=== PATIENT | female | born 1985 | race Caucasian/White ===

== ENCOUNTER 2022-06-18 08:51 | Outpatient (CLI) | payer OTHER, SELFPAY ==
[2022-06-18 09:24] LABS: Basophils Percent Auto 0.3 % (0.2-1.2); Eosinophils Absolute Auto 0.2 K/mm3 (0-0.3); Eosinophils Percent Auto 1.5 % (0-4.4); Hematocrit 42.2 % (37.0-47.0); Hemoglobin 13.5 g/dL (12.0-15.0); Immature Granulocyte Absolute 0.03 K/mm3 (0.00-0.031); Immature Granulocyte Percent A 0.3 % (0-0.5); Lymphocytes Absolute Auto 2.51 K/mm3 (0.9-3.2); Lymphocytes Percent Auto 22.9 % (18.3-44.2); Mean Corpuscular Hemoglobin 28.1 pg (26-34); Mean Corpuscular Volume 87.9 fl (80-100); Mean Platelet Volume 10.3 fl (7.4-10.4); Monocytes Absolute Auto 0.9 K/mm3 (0.1-0.6); Neutrophils Absolute Auto 7.3 K/mm3 (1.3-6.7); Platelet Count Result 300 k/mm3 (150-375); Red Cell Distribution Width 12.8 % (11.5-14.5)
[2022-06-18 09:29] LABS: Appearance Urine Cloudy (Clear); Bilirubin Urine Negative (Negative); Blood Urine Negative (Negative); Color Urine Yellow (Yellow); Glucose Urine UA Negative (Negative); Ketones Urine Negative (Negative); Leukocyte Esterase Ur Negative LEU/UL (Negative); Nitrate Urine Negative (Negative); Protein Urine Negative (Negative); Specific Grav Ur 1.015 (1.001-1.035); pH Urine 7.5 (5.0-9.0)
--- NOTE | 2022-06-18 09:31 | ECG_ITS ---
Measurements Intervals [place] Rate: 69 P: 53 HI: 152 QRS: 4 QRSD: 98 T: 32 QT: 377 QTc: 405 Interpretive Statements SINUS RHYTHM POSSIBLE RIGHT VENTRICULAR CONDUCTION DELAY BORDERLINE ECG NO PREVIOUS ECG AVAILABLE FOR COMPARISON Electronically Signed On 06-18-2022 14:07:39 DISPENSING OPERATOR by Martín Vu M.D.
[2022-06-18 09:33] LABS: Anion Gap 6 mmol/L (8-16); Blood Urea Nitrogen 13 mg/dL (7-17); Carbon Dioxide 31 mmol/L (22-30); Chloride 100 mmol/L (98-107); Estimated Glomerular Filt Rate > 60; Glucose 109 mg/dL (65-110); Potassium 3.9 mmol/L (3.4-5.0); Sodium 137 mmol/L (137-145)
[2022-06-18 09:49] LABS: Amorphous Sediment Urine Few; RBC Urine 0-2 /hpf (0-2); Squamous Epithelial Cell Urine Moderate /hpf (Few)
[2022-06-18 10:07] LABS: Add Urine Microscopic? YES
== END 2022-06-18 08:52 | disposition home or self-care (01) ==
LOC: ANHLAB 08:54
PROVIDERS: Visit Provider Neurological Surgery
DX: M46.1 Sacroiliitis, not elsewhere classified (principal); Z01.818 Encounter for other preprocedural examination; I45.9 Conduction disorder, unspecified
CPT/HCPCS: 36415; 80048; 81001; 85025; 86850; 86900; 86901; 93005

== ENCOUNTER 2022-06-22 16:09 | Observation (INO) | payer OTHER, SELFPAY ==
[2022-06-15 10:38] VITALS: BMI 33.3
--- NOTE | 2022-06-15 16:17 | PC.NURSE ---
Report to the Outpatient Waiting Room, entrance under the green pavilion located off [facility], at 1200 on 06-21-22. Planned Procedure Time: 1400. Time changes happen often and if your time is changed the preop area will call you the afternoon before. - You and your visitor will be asked to self-screen and do not enter if you have any COVID symptoms. - Only one visitor is requested with a max of two and NO children visitors (Under 16) are allowed at this time. - The patient visitor may be requested to leave or wait in car when not with patient due to distancing restrictions. - A mask is optional within the hospital. Patients may have clear liquids (water, carbonated beverages, clear teas, apple juice) until 3 hours prior to surgery with a maximum of 20 ounces. 1100 - No food from midnight until time of surgery - Infants may have breast milk until 4 hours before surgery, formula 6 hours prior to surgery. - Children will be allowed to drink immediately following surgery. If applicable, please bring a bottle or sippy cup to assist with drinking. Juice, water, soda, and popsicles are readily available. For infants on formula, please bring formula the day of surgery. Pacifiers are allowed. Take the following medications with a SIP of water the morning of surgery: hydrocodone if needed Medications to discontinue per physician: vitamins and supplements Date to take last dose: 06-18-22 Please no make-up, nail greek, hairspray, perfume, deodorant, or body powder the day of surgery. No jewelry (including any body piercings) or valuables the day of surgery, leave them at home. Please take a shower or bath the night before, or the morning of, surgery with an antibacterial soap. Wear comfortable, loose fitting clothing. Children are encouraged to wear pajamas. - Jewelry must be removed prior to entering the operating room. Rings and piercings that are not removed may be cut off. - The hospital will not accept responsibility for valuables. - Please leave all valuables, including medications, at home the day of surgery. If you are going home after surgery, a licensed ambulance driver must drive you home. - NO public transportation without another adult if you receive anesthesia. - We recommend that an adult stay with you for 24 hours following discharge. - We also recommend that you do not drive, make important decision, drink alcoholic beverages, or take any drugs that were not prescribed by your health care provider for at least 24 hours after your discharge time. For Pediatric surgeries, we recommend two adults accompany the child home. Follow any additional instructions given to you from your surgeon. If you or anyone in your household have experienced Covid symptoms in the past week, please notify your surgeon or the nurse liaison at the phone number below for possible testing. Telephone instructions given to Johanna Calderon and asked if any additional questions and then verbalized understanding. Patient advised to call surgeon office or pre surgery nurse liaison [phone] if any additional questions.
[2022-06-21] VITALS (14 sets, daily range): BP systolic 115–167; BP diastolic 61–92; PULSE 67–90; RESP 12–22; TEMP 36.1–37.1; O2SAT 80–100
[2022-06-21] MEDS: LACTATED RINGERS 1,000 ML 30 ML IV CONT (13:00)
[2022-06-21 13:46] LABS: INR 1.1; Prothrombin Time 13.7 Seconds (11.1-14.7)
--- NOTE | 2022-06-21 13:53 | PM.IMHP ---
H&P: HPI History of Present Illness Date/Time: 06/21/22 13:53 Chief Complaint: Back and leg pain Narrative: Johanna is a 36-year-old female with sacral buttock proximal lower extremity pain related to sacroiliitis who presents now for right SI joint fusion. She has not changed appreciably since we saw her last. She is not having dermatomal numbness or specific muscle group weakness. She is not having bowel or bladder difficulty. Review of Systems Review of Systems: Patient denies shortness of breath, cough, fever, chills, nausea, vomiting, weight loss, weight gain, chest pain, dysuria. She has back, sacral and buttock area discomfort as well as pain in the proximal lower extremity with activity as noted elsewhere. Review of systems is otherwise negative on 12 systems except as noted elsewhere. [facility] Social History Social History Smoking packs per day: 0.5 Smoking cigarettes per day: 10.0 Years smoked: 15 Smoking pack-years: 7.50 Smoking status: Former smoker Tobacco type: cigarettes Smokeless tobacco user: other Second hand tobacco smoke exposure: Yes Additional smoking assessment comments: currently wears a nicotine patch sometimes Alcohol intake: never Substance use: never Substance use type: does not use Lack of Transportation: No Lack of Food: Never True Current Housing: I Have Housing Concerned About Future Housing: No Difficulty Paying Gas/Electric Bills: No Difficulty Paying for Meds: No Currently Unemployed: No Education: Associate Degree Difficulty w/ Childcare or Family Care: No Living arrangements: with family Additional occupation/education comments: [employer] Spiritual care concerns: No Meds Home Medications and Allergies Home Medications Medication Instructions Recorded Confirmed Type ascorbate calcium (vitamin C) 500 500 mg PO DAILY 06/15/22 06/21/22 History mg tablet cetirizine 10 mg tablet (Zyrtec) 10 mg PO DAILY 06/15/22 06/21/22 History cyclobenzaprine 10 mg tablet 10 mg PO DAILY 06/15/22 06/15/22 History doxycycline hyclate 100 mg capsule 100 mg PO DAILY 06/15/22 06/21/22 History hydrocodone 10 mg-acetaminophen 1 tablet PO Q4H PRN Pain, Severe 06/15/22 06/21/22 History 325 mg tablet linaclotide 72 mcg capsule 72 mcg PO DAILY 06/15/22 06/21/22 History (Linzess) nicotine 7 mg/24 hr daily 1 patch transdermal DAILY PRN 06/15/22 06/21/22 History transdermal patch Nicotine Cravings vitamin B complex (B 1 tablet PO DAILY 06/15/22 06/21/22 History Complex-Vitamin B12 tablet) Allergies Allergy/AdvReac Type Severity Reaction Status Date / Time No Known Allergies Allergy Verified 06/21/22 12:38 Vital Signs Vital Signs - 24 hr 06/21/22 13:06 Temperature 98.3 F Pulse Rate 81 Respiratory Rate 16 Blood Pressure 160/91 H Pulse Oximetry 100 Oxygen Delivery Room Air Exam Narrative: Strength is 5/5 in all muscle groups of bilateral lower extremities. Sensation is intact to light touch throughout the lower extremities. Breathing is unlabored. Regular rate Assessment and Plan Assessment and plan (1) Sacroiliitis: Code(s): M46.1 - Sacroiliitis, not elsewhere classified Status: Acute Plan Joahnna is a 36-year-old female with a right sacroiliitis who presents for sacroiliac joint fusion. I described to her again that operation, its risks, potential benefits, the operative and postoperative course in detail answered all her questions personally. She indicates understanding and elects proceed with that operation
--- NOTE | 2022-06-21 13:55 | WPDHPUPDATE1 ---
History and Physical Update Update Date/Time: 06/21/22 13:55 History and Physical has been reviewed, including an updated exam of the patient. There are NO changes in the patient's condition. Risks, benefits, and alternatives have been discussed and questions answered. Patient agrees to proceed with procedure.
--- NOTE | 2022-06-21 14:02 | WPDANESEPPF ---
Anes - Initial Pre Proc Eval Procedure: Operation Date: 06/21/22 14:00 Proposed Procedures p Right Sacroiliac Joint Fusion - Adama Fleming MD Date/Time: 06/21/22 14:02 Surgeon: Adama Fleming MD Pre Op Diagnosis: Right Sacroiliitis Patient Data Age: 36 Gender: F Height: 1.65 m Weight: 95.5 kg Last Vital Signs Temp 36.8 C 06/21/22 13:06 Pulse 81 06/21/22 13:06 Resp 16 06/21/22 13:06 BP 160/91 H 06/21/22 13:06 Pulse Ox 100 06/21/22 13:06 O2 Del Method Room Air 06/21/22 13:06 Allergies Allergy/AdvReac Type Severity Reaction Status Date / Time No Known Allergies Allergy Verified 06/21/22 12:38 Home Medications Medication Instructions Recorded Confirmed Type ascorbate calcium (vitamin C) 500 500 mg PO DAILY 06/15/22 06/21/22 History mg tablet cetirizine 10 mg tablet (Zyrtec) 10 mg PO DAILY 06/15/22 06/21/22 History cyclobenzaprine 10 mg tablet 10 mg PO DAILY 06/15/22 06/15/22 History doxycycline hyclate 100 mg capsule 100 mg PO DAILY 06/15/22 06/21/22 History hydrocodone 10 mg-acetaminophen 1 tablet PO Q4H PRN Pain, Severe 06/15/22 06/21/22 History 325 mg tablet linaclotide 72 mcg capsule 72 mcg PO DAILY 06/15/22 06/21/22 History (Linzess) nicotine 7 mg/24 hr daily 1 patch transdermal DAILY PRN 06/15/22 06/21/22 History transdermal patch Nicotine Cravings vitamin B complex (B 1 tablet PO DAILY 06/15/22 06/21/22 History Complex-Vitamin B12 tablet) Laboratory Tests 06/21/22 12:44 PT 13.7 Seconds Seconds (11.1-14.7) INR 1.1 APTT 32.0 SECONDS SECONDS (22.3-36.8) Patient hx anesthesia problems: none Family hx anesthesia problems: none Results Review: All pre-operative results and documents have been reviewed as part of the pre-operative evaluation. PMFSH Social History Social History Smoking packs per day: 0.5 Smoking cigarettes per day: 10.0 Years smoked: 15 Smoking pack-years: 7.50 Smoking status: Former smoker Tobacco type: cigarettes Smokeless tobacco user: other Second hand tobacco smoke exposure: Yes Additional smoking assessment comments: currently wears a nicotine patch sometimes Alcohol intake: never Substance use: never Substance use type: does not use Lack of Transportation: No Lack of Food: Never True Current Housing: I Have Housing Concerned About Future Housing: No Difficulty Paying Gas/Electric Bills: No Difficulty Paying for Meds: No Currently Unemployed: No Education: Associate Degree Difficulty w/ Childcare or Family Care: No Living arrangements: with family 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 Informed Consent: The patient's anesthetic plan and its attendant risks and benefits were discussed with the patient/family/POA. Questions were solicited and answers provided to the satisfaction of the patient/family/POA.
[2022-06-21] MEDS: ceFAZolin 2 GM/D5W 50 ML 2 GM/50 ML BAG IVPB (14:28)
[2022-06-21] MEDS: LIDO 1%/EPINEPHRINE/PF 1:200,000 30 ML VIAL XX (15:11)
[2022-06-21] MEDS: fentaNYL CITRATE INJ (*CRX) 100 MCG/2 ML VIAL 25 MCG IV PUSH ×8 (17:07→18:05)
--- NOTE | 2022-06-21 18:20 | ADMGEN ---
This patient, Johanna Calderon, was admitted to Medical Room 340-01. Patient/family oriented to hospital policies and general routines including ID bracelet, bed and alarms, visiting hours, pain management, procedures, bathroom and other care routines, personal items, smoking policy, room service/diet, and visiting hours. Information on how to activate the Rapid Response Team has been discussed. Patient/Family are encouraged to report perceived risks to care and to ask questions if they do not understand what they are told or what they should do.
[2022-06-21] MEDS: MORPHINE SULFATE (*CRX) 2 MG/ML INJ IV PUSH (18:33)
--- NOTE | 2022-06-21 19:09 | W.PM.PROC2 ---
Procedure Note - Detailed Date of Procedure 06/21/22 Pre-op Diagnosis Right Sacroiliitis Post-op Diagnosis Same Procedure Performed Right sacroiliac joint fusion lateral approach Surgeon Adama Fleming MD Contract Management Specialist Lilli Anesthesia General Indications Johanna is a 36-year-old female with a bilateral sacroiliac joint dysfunction and inflammation that has failed nonsurgical management who presents now for sacroiliac joint fusion. This will be done on the right today. Description of Procedure Johanna was brought to the operating room in the supine position, was sedated, intubated and placed under general anesthesia in routine fashion. She was then turned into the prone position on gel rolls. Fluoroscopy was used to outline the sacrum and antoine he incision on the right buttock with lateral view flouroscopy. Inlet and outlet views were also verified Mar. This area was prepped and draped in routine sterile fashion. This area was injected with 0.5% lidocaine with [id number] epinephrine. Intravenous antibiotics given prior to incision. Incision was made with a 10 blade scalpel. Using lateral view fluoroscopy a K-wire was placed against the ilium across from the sacroiliac joint just distal to the alar line. Using the inlet and outlet views the wire was advanced, making sure that it stayed within the sacrum and did not breach anteriorly and states short of the foraminal line. Sequential dilators were placed. A measurement was taken in the 50 mm x 11.5 mm device was chosen. The K-wire was extended an than the appropriate size bit was placed on the drill and used a drill hole under outlet view fluoroscopy short of the foraminal line. The hole was tapped over the K-wire then an 11.5 x 50 mm device was placed. Autograft bone from the drill bit was mixed with I factor and magnetos bone hardware sales assistant was placed into the device before it was advanced across the SI joint. A funnel was placed over the K-wire and usedTo push more of this mixture down the center of the device. A new K-wire was placed using a guide to was placed also over the 1st K-wire to ensure good distance placing. Likewise the K-wire was placed against the ilium across the SI joint. Inlet views were use to make sure that the K-wire did not reach anteriorly and in the outlet view the K-wire was advanced until it was short of the foraminal line. In the same fashion as the previous device, the K-wire was extended after sequential dilators were placed in a measurement was taken and then the drill and tap were both used under outlet view fluoroscopy to make sure everything stage short of the foraminal 1 and then another 50 mm x 11.5 mm device was placed again under outlet fluoroscopy to confirm good position short of the foraminal line. Again the funnel was used to place additional autograft mixed with the bone extenders down the shaft of the device. Attempts were made to place a 3rd device using the spacer guide but the size the sacrum did not permitted and as there was too much risk of breaching anteriorly or inferiorly it was not attempted. Wound was therefore copiously irrigated with bacitracin irrigation all bleeding was stopped with bipolar and Bovie cautery and Gelfoam thrombin powder. Wound was then closed in layered fashion with 3-0 Vicryl interrupted sutures in the dermis and a running 4-0 Monocryl subcuticular stitch in the skin and was dressed with Dermabond and a Telfa and Tegaderm dressing. The patient was then turned into the supine position on a hospital bed and was lot of him up from general anesthesia in the operating room and was taken to the recovery room in stable condition. There were no immediate complications of this operation. All counts were reported correct at the end the case. Blood loss was 10 cc. Patient was neurologically at her baseline postoperatively. Estimated Blood Loss -10.0 IV Fluids 1,000 Complications No immediate complications Condition Stable Dis
[2022-06-21] MEDS: HYDROmorphone HCL INJ (*CRX) 1 MG/ML SYR 0.5 MG IV PUSH (19:32)
[2022-06-21] MEDS: DOCUSATE SODIUM 100 MG CAPSULE PO (20:40)
[2022-06-21] MEDS: HYDROcodone/acetaminophen (*CRX) 10-325 MG TABLET 1 TAB PO (21:33)
[2022-06-21] MEDS: ONDANSETRON INJ 4 MG/2 ML VIAL IV PUSH (21:33)
--- NOTE | ~2022-06-22 | CT_ITS ---
EXAMINATION: CT pelvis wo con DATE: 06/21/2022 19:12 INDICATION: Severe postoperative pain. TECHNIQUE: Computed tomography (CT) of the pelvis was performed without intravenous contrast. Automat ed exposure control and iterative reconstruction technique were employed. The dose-length product was 842.08 mGy-cm. COMPARISON: X-ray fluoroscopy, same date FINDINGS: Hardware fixation of the right SI joint. No hardware fracture or abnormal perihilar hardwar e lucency. Post surgical change noted in the soft tissues of the right hip. Minimal fluid and subcuta neous gas extend along the right right upper sacral plexus and piriformis muscle. Gas is present with in the right S1 neural foramen and extends along the S1 nerve root proximally into the epidural space of the upper sacrum and lower lumbar spine. Cortical breakthrough at the right S1 nerve foramen is p ossible but obscured by metal artifact. The hardware does not extend into the foramen. 3.3 cm simple right ovarian cyst. 1.3 cm simple left ovarian cyst or dominant follicle. Normal appendix. Urinary bl adder wall thickening. No free pelvic fluid. IMPRESSION: 1. Small volume postsurgical gas present in the lower lumbar/upper sacral epidural space and right S1 neural foramen. Small-volume postsurgical gas and a very small amount of fluid present along the upp er portion of the right sacral plexus, right piriformis muscle, and the upper portion of the and port ions of the right S1 nerve root. 2. Cortical breakthrough involving the right S1 neural foramen is not definitively visualized but vis ualization mostly obscured by metal artifact. 3. Possible cystitis, correlate with urinalysis. Reviewed, dictated and finalized at location K. IED TECHNOLOGIST IMPRESSION: 1. Small volume postsurgical gas present in the lower lumbar/upper sacral epidu ral space and right S1 neural foramen. Small-volume postsurgical gas and a very small amount of fluid present along the upper portion of the right sacral plex us, right piriformis muscle, and the upper portion of the and portions of the r ight S1 nerve root. 2. Cortical breakthrough involving the right S1 neural foramen is not definitiv hi visualized but visualization mostly obscured by metal artifact. 3. Possible cystitis, correlate with urinalysis.
--- NOTE | ~2022-06-22 | XR_ITS ---
EXAMINATION: XR fluoroscopy no charge DATE: 06/21/2022 15:30 OUTPATIENT CODING SPECIALIST INDICATION: SI JOINT . TECHNIQUE: 3 fluoroscopic images of the sacroiliac joint were obtained during SI joint fusion perform ed by the surgeon. I was not present in the operating room. Fluoroscopy exposure time was 94.7 second s. Air Kerma 66.47 mGy. DAP 1.87 mGym2. COMPARISON: None FINDINGS: Hardware fusion of a sacroiliac joint, probably the right, if the images were obtained and recorded i n the standard orientation. No procedure or hardware related complication detected. IMPRESSION: Fluoroscopic documentation of sacroiliac joint fusion. Please refer to the operative note for complet e procedural details . Reviewed, dictated and finalized at location K. ATIENT CODING SPECIALIST IMPRESSION: Fluoroscopic documentation of sacroiliac joint fusion. Please refer to the oper ative note for complete procedural details .
[2022-06-22] MEDS: MORPHINE SULFATE (*CRX) 2 MG/ML INJ IV PUSH ×4 (00:29→11:42)
[2022-06-22 01:09] VITALS: BP 138/77; PULSE 76; RESP 20; TEMP 37; O2SAT 99
[2022-06-22] MEDS: HYDROcodone/acetaminophen (*CRX) 10-325 MG TABLET 1 TAB PO ×2 (02:20→07:44)
[2022-06-22] MEDS: DOCUSATE SODIUM 100 MG CAPSULE PO ×2 (08:42→20:38)
[2022-06-22] MEDS: LORATADINE 10 MG TABLET PO (08:42)
[2022-06-22] MEDS: ASCORBIC ACID 500 MG TABLET PO (08:42)
[2022-06-22] MEDS: VITAMIN B COMPLEX CAPSULE 1 CAP PO (08:43)
[2022-06-22] MEDS: DOXYCYCLINE HYCLATE 100 MG TABLET PO (08:43)
[2022-06-22 09:09] VITALS: BP 147/72; PULSE 79; RESP 16; TEMP 36.3; O2SAT 99
--- NOTE | 2022-06-22 11:59 | WPDANESPN ---
Anes - Prog Note Post-Op Date/Time: 06/22/22 11:59 Cardiovascular status: normal Respiratory status: normal Airway patency: baseline Mental status: baseline Post-Op hydration status: normal Vital Signs: Last Vital Signs Temp 36.3 C L 06/22/22 09:09 Pulse 79 06/22/22 09:09 Resp 16 06/22/22 09:09 BP 147/72 H 06/22/22 09:09 Pulse Ox 99 06/22/22 09:09 O2 Del Method Room Air 06/22/22 10:26 O2 Flow Rate 8 06/21/22 17:10 Pain Score (VAS): 5/10 I/O: Intake & Output 06/21/22 06/22/22 06/22/22 23:59 07:59 15:59 Intake Total 1150 240 Output Total 650 Balance 1150 -650 240 06/21/22 12:44 PT 13.7 INR 1.1 APTT 32.0 Post-procedural complaints: none Patient Feedback: Patient satisfied with anesthetic care.
[2022-06-22 13:09] VITALS: PULSE 81; RESP 18; TEMP 36.3; O2SAT 99
[2022-06-22] MEDS: oxyCODONE/ACETAMINOPHEN (*CRX) 10-325 MG TABLET 1 TAB PO ×3 (14:21→22:28)
--- NOTE | 2022-06-22 14:59 | WPDNEUROPN ---
Progress Note: A&P Assessment and Plan (1) Sacroiliitis: Code(s): M46.1 - Sacroiliitis, not elsewhere classified Status: Acute Assessment and Plan: Johanna Calderon is s/p right SIJ fusion, post op day 1. She reported that she has significant pain to her arsen LB, right sided, which is exacerbated with any movement. Case discussed with Dr Fleming. Will discontinue IV Morphine and Hydrocodone, will start Percocet 10/325mg 1 po q4-6 hours for pain 6-10 or Percocet 5/325mg 1 po q4-6hours for pain 7-10 and Oral Decadron 4mg q6hrs. Time Spent With Patient Time with patient: 15 - 25 minutes Subjective Date/time seen: 06/22/22 14:59 Interval history: Johanna Calderon was seen for post-op progress check. She is s/p right SIJ fusion, post op day 1. She reported that she has significant pain to her arsen LB, right sided, which is exacerbated with any movement. She reports that she is unable to ambulate any distances due to the severe pain, has pain that radiates to her right LE and a decrease in sensation to the right lower leg. She does report that the Morphine and Hydrocodone are not controlling her pain and has requested another narcotic for pain management. Exam Narrative: AO x 3 Speech clear fluent and appropriate Equal strength noted to BLE's however limited due to pain Right buttock dressing clean dry and intact Objective Data Vital Signs Vital Signs: Vital Signs - 24 hr 06/21/22 16:43 06/21/22 16:50 06/21/22 17:10 Temperature 36.1 C L Pulse Rate 67 90 76 Respiratory Rate 18 20 16 Blood Pressure 130/85 115/80 145/87 H Pulse Oximetry 100 97 80 L Oxygen Delivery Simple Face Mask Simple Face Mask Simple Face Mask Oxygen Flow Rate 10 8 8 06/21/22 17:25 06/21/22 17:40 06/21/22 18:00 Temperature Pulse Rate 74 75 67 Respiratory Rate 16 12 12 Blood Pressure 144/82 H 152/78 H 167/92 H Pulse Oximetry 100 100 100 Oxygen Delivery Room Air Room Air Room Air Oxygen Flow Rate 06/21/22 18:30 06/21/22 18:45 06/21/22 18:54 Temperature 37.1 C 36.9 C 37.1 C Pulse Rate 81 83 81 Respiratory Rate 18 20 18 Blood Pressure 156/91 H 156/81 H 156/91 H Pulse Oximetry 97 99 97 Oxygen Delivery Oxygen Flow Rate 06/21/22 19:09 06/21/22 19:39 06/21/22 20:09 Temperature 36.9 C 37.0 C 37.0 C Pulse Rate 83 74 78 Respiratory Rate 20 22 H 14 Blood Pressure 156/81 H 153/87 H 120/61 Pulse Oximetry 99 100 100 Oxygen Delivery Oxygen Flow Rate 06/21/22 21:09 06/22/22 01:09 06/22/22 10:26 Temperature 37.0 C 37.0 C Pulse Rate 81 76 Respiratory Rate 22 H 20 Blood Pressure 150/80 H 138/77 Pulse Oximetry 100 99 Oxygen Delivery Room Air Oxygen Flow Rate 06/22/22 09:09 Temperature 36.3 C L Pulse Rate 79 Respiratory Rate 16 Blood Pressure 147/72 H Pulse Oximetry 99 Oxygen Delivery Oxygen Flow Rate Intake/Output Intake/Output: Intake & Output 06/19/22 06/20/22 06/21/22 06/22/22 23:59 23:59 23:59 23:59 Intake Total 1200 360 Output Total 650 Balance 1200 -290 Meds/Results Medications: Active Medications Generic Name Dose Route Start Last Admin Trade Name Freq PRN Reason Stop Dose Admin Al Hydrox/Mg Hydrox/Simethicone 20 ml 06/21/22 18:09 Mag Hydrox/Al Hydrox/Simeth 30 Ml Udc PO Q4H PRN Indigestion/Heartburn Ascorbic Acid 500 mg 06/22/22 09:00 06/22/22 08:42 Ascorbic Acid 500 Mg Tablet PO 500 mg DAILY KAROLINA Administration Bisacodyl 10 mg 06/21/22 18:09 Bisacodyl 10 Mg Suppository RECTAL DAILY PRN Constipation Cyclobenzaprine HCl 10 mg 06/21/22 18:09 Cyclobenzaprine Hcl 10 Mg Tablet PO TID PRN Muscle Spasms Docusate Sodium 100 mg 06/21/22 21:00 06/22/22 08:42 Docusate Sodium 100 Mg Capsule PO 100 mg Q12HR KAROLINA Administration Doxycycline Hyclate 100 mg 06/22/22 09:00 06/22/22 08:43 Doxycycline Hyclate 100 Mg Tablet PO 100 mg DAILY KAROLINA Administration Loratadine 10 mg 06/22/22
[2022-06-22] MEDS: DEXAMETHASONE 4 MG TABLET PO ×2 (18:16→22:29)
[2022-06-22 20:21] VITALS: BP 147/72; PULSE 83; RESP 16; TEMP 36.4; O2SAT 99
[2022-06-23] MEDS: oxyCODONE/ACETAMINOPHEN (*CRX) 10-325 MG TABLET 1 TAB PO ×3 (02:47→11:12)
[2022-06-23] MEDS: ONDANSETRON INJ 4 MG/2 ML VIAL IV PUSH (03:09)
[2022-06-23 05:40] VITALS: BP 135/76; PULSE 71; RESP 18; TEMP 36.8; O2SAT 99
[2022-06-23] MEDS: DEXAMETHASONE 4 MG TABLET PO (07:04)
--- NOTE | 2022-06-23 09:18 | PCOTNOTE ---
Attempted to see patient this am. Pt reported already taking two showers this am. She stated once around 3 am and once around 7am The warm water helps with other aches and pains I have. Pt stated the only issue came with washing and drying lower body. Educated patient on using adaptive equipment for improved functional reach to reduce pain and increase independence. Pt's breakfast tray arrived during discussion. Pt reports no further concerns as pertains to OT. Pt mentioned she utilized techniques learned from yesterday to complete toilet transfer and lower body dressing with success. Pt eager to walk after breakfast. PT assistant director of residence life notified.
[2022-06-23] MEDS: VITAMIN B COMPLEX CAPSULE 1 CAP PO (09:29)
[2022-06-23] MEDS: DOXYCYCLINE HYCLATE 100 MG TABLET PO (09:29)
[2022-06-23] MEDS: DOCUSATE SODIUM 100 MG CAPSULE PO (09:29)
[2022-06-23] MEDS: ASCORBIC ACID 500 MG TABLET PO (09:30)
[2022-06-23] MEDS: LORATADINE 10 MG TABLET PO (09:30)
--- NOTE | 2022-07-12 20:38 | PM.DS ---
DS: Admitting Diagnosis Discharge Date 06/23/22 Admitting Diagnosis right sacroiliitis DS: Discharge Diagnosis Discharge Diagnosis Plan Johanna is a 36-year-old female with a right sacroiliitis who presents for right sacroiliac joint fusion. DS: Summary Hospital Course Hospital Course: Johanna was brought to the operating room on the day of admission where the aforementioned operation was performed without complication. The patient went to for postop bleed. She had issues with pain control. She was changed to Percocet by mouth. This seemed to make a significant impact. Physical and occupational therapy were involved in her care. At the time of her discharge she was eating, ambulating and emptying her bladder. Her pain was under control with by mouth pain medicine. Her wounds remain clean dry and intact. She was afebrile with stable vital signs. She was therefore allowed to be discharged to home. Time Spent with Patient Time attestation: Total time spent providing and/or coordinating discharge services: Discharge Plan Discharge Consulting providers: Tony Proctor ; Shiraz Cardoza ; Anna Marie Ennis ; Ivon Lovett Discharging Clinician: Adama Fleming Patient Disposition: Home, Self-Care Activity: as tolerated Diet: regular Wound Care Instructions: follow printed instructions Patient Instructions: Antibiotic Form Stand Alone Forms: General Discharge Information Follow-up/Referrals: Adama Fleming MD [Physician] - Discharge Medications: New oxycodone-acetaminophen 5-325 mg tablet 1 - 2 tablet PO Q4H PRN (Reason: pain) Qty: 40 0RF Continued Linzess 72 mcg capsule 72 mcg PO DAILY Rx Instructions: patient takes HS doxycycline hyclate 100 mg capsule 100 mg PO DAILY Rx Instructions: patient takes HS vitamin B complex [B Complex-Vitamin B12] Tablet 1 tablet PO DAILY ascorbate calcium (vitamin C) 500 mg Tablet 500 mg PO DAILY cetirizine [Zyrtec] 10 mg Tablet 10 mg PO DAILY cyclobenzaprine 10 mg tablet 10 mg PO DAILY Rx Instructions: patient takes HS nicotine 7 mg/24 hr Patch 24 Hour 1 patch TRANSDERMAL DAILY PRN (Reason: Nicotine Cravings) Discontinued hydrocodone-acetaminophen 10-325 mg tablet 1 tablet PO Q4H PRN (Reason: Pain, Severe) Date of admission: 06/22/22 16:09 Primary Care Provider: Iman Goodman Admitting Provider: Adama Fleming Attending physician on admission: Adama Fleming Condition: Improved
== END 2022-06-23 12:32 | disposition home or self-care (01) ==
LOC: ANHSURGERY 16:16 → ANH3MED 16:16
PROVIDERS: Admitting Provider Neurological Surgery; Visit Provider Neurological Surgery
PROC: (CPT 27280; principal; 2022-06-21 14:00)
DX: M46.1 Sacroiliitis, not elsewhere classified (principal); E66.9 Obesity, unspecified; Z68.35 Body mass index [BMI] 35.0-35.9, adult; Z87.891 Personal history of nicotine dependence; Z79.891 Long term (current) use of opiate analgesic; Z79.899 Other long term (current) drug therapy
CPT/HCPCS: 27279; 36415; 72192; 80048; 81001; 85025; 85610; 85730; 86850; 86900; 86901; 93005; 97116; 97161; 97165; 99199; A9270; G0378; J0330; J0690; J1100; J1170; J2250; J2270; J2405; J2704; J3010; J3370; J7120; J8540

== ENCOUNTER 2022-08-02 11:38 | Outpatient (CLI) | payer OTHER, SELFPAY ==
--- NOTE | ~2022-08-02 | XR_ITS ---
EXAMINATION: XR sacroiliac joints min 3V DATE: 08/02/2022 12:01 INDICATION: Right sacroiliac joint fusion. TECHNIQUE: 3 views of the sacroiliac joints were obtained. COMPARISON: CT pelvis 06/21/2022 FINDINGS: Bone alignment is normal. No fracture. There is a benign bone island in the sacrum. There i s ankylosis of right sacroiliac joint with 2 screws. No periscrew lucency to suggest loosening or inf ection. There is mild osteoarthritis of left sacroiliac joint. IMPRESSION: 1. 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 2. Mild osteoarthritis of left sacroiliac joint. Reviewed, dictated and finalized at location A. [employer]
== END 2022-08-02 11:39 | disposition home or self-care (01) ==
PROVIDERS: Visit Provider Neurological Surgery
DX: M46.1 Sacroiliitis, not elsewhere classified (principal); Z98.890 Other specified postprocedural states; M47.898 Other spondylosis, sacral and sacrococcygeal region; M43.28 Fusion of spine, sacral and sacrococcygeal region
CPT/HCPCS: 72202

== ENCOUNTER 2022-10-27 00:32 | Day surgery (SDC) | payer OTHER, SELFPAY ==
[2022-10-19 15:15] VITALS: BMI 33.3
--- NOTE | 2022-10-19 15:20 | PC.NURSE ---
Report to the Outpatient Waiting Room, entrance under the green pavilion located off [facility], at time 7:30 on date 10/27/22. Planned Procedure Time: 9:30. Time changes happen often and if your time is changed the preop area will call you the afternoon before. - You and your visitor will be asked to self-screen and do not enter if you have any COVID symptoms. - Only one visitor is requested with a max of two and NO children visitors are allowed at this time. - The patient visitor may be requested to leave or wait in car when not with patient due to distancing restrictions. - A mask is optional within the hospital at this time. Patients may have clear liquids (water, carbonated beverages, clear teas, apple juice) until 3 hours prior to surgery with a maximum of 20 ounces. - No food from midnight until time of surgery Take the following medications with a SIP of water the morning of surgery: PAIN PILL IF NEEDED DO NOT STOP ANY OF YOUR OTHER PRESCRIPTION MEDICATIONS PRIOR TO SURGERY EXCEPT THE FOLLOWING Medications to discontinue per physician: VITAMINS/SUPPLEMENTS Date to take last dose: 10/23/22 Please no make-up, nail maltese, hairspray, perfume, deodorant, or body powder the day of surgery. No jewelry (including any body piercings) or valuables the day of surgery, leave them at home. Please take a shower or bath the night before, or the morning of, surgery with an antibacterial soap. Wear comfortable, loose fitting clothing. - Jewelry must be removed prior to entering the operating room. Rings and piercings that are not removed may be cut off. - The hospital will not accept responsibility for valuables. - Please leave all valuables, including medications, at home the day of surgery. If you are going home after surgery, a licensed parts delivery driver must drive you home. - NO public transportation without another adult if you receive anesthesia. - We recommend that an adult stay with you for 24 hours following discharge. - We also recommend that you do not drive, make important decision, drink alcoholic beverages, or take any drugs that were not prescribed by your health care provider for at least 24 hours after your discharge time. Follow any additional instructions given to you from your surgeon. If you or anyone in your household have experienced Covid symptoms in the past week, please notify your surgeon or the nurse liaison at the phone number below for possible testing. Telephone instructions given to PT - MANUEL TRUJILLO and asked if any additional questions and then verbalized understanding. Patient advised to call surgeon office or pre surgery nurse liaison [phone] if any additional questions.
[2022-10-27] VITALS (12 sets, daily range): BP systolic 90–145; BP diastolic 53–89; PULSE 64–92; RESP 12–20; TEMP 36.3–36.8; O2SAT 98–100
--- NOTE | ~2022-10-27 | XR_ITS ---
EXAMINATION: XR fluoroscopy no charge DATE: 10/27/2022 11:36 INDICATION: Left-sided sacroiliitis. TECHNIQUE: 3 intraoperative fluoroscopic views of the pelvis were obtained. I was not present. Fluoro scopy exposure time was 2 minutes and 6 seconds. COMPARISON: Sacroiliac joint radiographs 08/02/22 FINDINGS: Bone alignment is normal. There are changes of bilateral sacroiliac joint arthrodesis proce dures with 3 screws on the left and 2 screws on the right. IMPRESSION: 1. Arthrodesis procedures of the sacroiliac joints. Reviewed, dictated and finalized at location A.
--- NOTE | 2022-10-27 07:47 | PM.IMHP ---
H&P: HPI History of Present Illness Date/Time: 10/27/22 07:47 Chief Complaint: Sacroiliitis Narrative: Johanna is a 37-year-old female with a left-sided sacroiliitis who presents for sacroiliac joint fusion. She has undergone this procedure on the right is doing well from that operation. She has not changed appreciably since we last saw her. She does not have specific muscle group weakness or dermatomal numbness. She is not having bowel or bladder difficulty. Review of Systems Review of Systems: Patient denies shortness of breath, cough, fever, chills, nausea, vomiting, weight loss, weight gain, chest pain, dysuria. She has left sacral buttock and hip discomfort as above. Her review systems is otherwise negative on 12 systems except as noted elsewhere. [facility] Surgical History Surgical History S/P fusion of sacroiliac joint Family History Family History Other Asthma Heart disease Hypertension Social History Social History Smoking packs per day: 1 Smoking cigarettes per day: 20.0 Years smoked: 15 Smoking pack-years: 15.00 Smoking status: Current some day smoker Tobacco type: cigarettes Smokeless tobacco user: other Second hand tobacco smoke exposure: Yes Additional smoking assessment comments: ATTEMPTING TO QUIT - USING NICOTINE PATCH Alcohol intake: never Substance use: never Substance use type: does not use Lack of Transportation: No Lack of Food: Never True Current Housing: I Have Housing Concerned About Future Housing: No Difficulty Paying Gas/Electric Bills: No Difficulty Paying for Meds: No Currently Unemployed: No Education: Don't Know Difficulty w/ Childcare or Family Care: No Living arrangements: with family Occupation/Education: occupation 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 Spiritual care concerns: No Meds Home Medications and Allergies Home Medications Medication Instructions Recorded Confirmed Type ascorbate calcium (vitamin C) 500 500 mg PO DAILY 06/15/22 10/19/22 History mg tablet cetirizine 10 mg tablet (Zyrtec) 10 mg PO DAILY 06/15/22 10/19/22 History linaclotide 72 mcg capsule 72 mcg PO DAILY 06/15/22 10/19/22 History (Linzess) nicotine 7 mg/24 hr daily 1 patch transdermal DAILY PRN 06/15/22 10/19/22 History transdermal patch Nicotine Cravings vitamin B complex (B 1 tablet PO DAILY 06/15/22 10/19/22 History Complex-Vitamin B12 tablet) oxycodone-acetaminophen 5 mg-325 1 - 2 tablet PO Q4H PRN pain #40 06/23/22 10/19/22 Rx mg tablet tabs Allergies Allergy/AdvReac Type Severity Reaction Status Date / Time No Known Allergies Allergy Verified 10/19/22 15:14 Exam Narrative: Strength is 5/5 in all muscle groups of the bilateral lower extremities. Sensation is intact to light touch throughout the lower extremities. Breathing is nonlabored. She speaks in complete sentences without difficulty. Regular rate and rhythm Assessment and Plan Assessment and plan (1) Sacroiliitis: Code(s): M46.1 - Sacroiliitis, not elsewhere classified Status: Acute Assessment and Plan: Johanna is a 37-year-old female who presents for left sacroiliac joint fusion. I described to her again that operation, its risks, potential benefits, the operative and postoperative course in detail answered all her questions personally. She indicates understanding and elects to proceed with the operation.
--- NOTE | 2022-10-27 07:49 | WPDHPUPDATE1 ---
History and Physical Update Update Date/Time: 10/27/22 07:49 History and Physical has been reviewed, including an updated exam of the patient. There are NO changes in the patient's condition. Risks, benefits, and alternatives have been discussed and questions answered. Patient agrees to proceed with procedure.
[2022-10-27 08:05] LABS: Hemoglobin 15.1 g/dL (12.0-15.0)
--- NOTE | 2022-10-27 08:36 | WPDANESEPPF ---
Anes - Initial Pre Proc Eval Procedure: Operation Date: 10/27/22 09:30 Proposed Procedures p Left Sacroiliac Joint Fusion - Adama Fleming MD Date/Time: 10/27/22 08:36 Surgeon: Adama Fleming MD Pre Op Diagnosis: left sacroiliitis Patient Data Age: 37 Gender: F Height: 1.65 m Weight: 90.75 kg Allergies Allergy/AdvReac Type Severity Reaction Status Date / Time No Known Allergies Allergy Verified 10/19/22 15:14 Home Medications Medication Instructions Recorded Confirmed Type ascorbate calcium (vitamin C) 500 500 mg PO DAILY 06/15/22 10/19/22 History mg tablet cetirizine 10 mg tablet (Zyrtec) 10 mg PO DAILY 06/15/22 10/19/22 History linaclotide 72 mcg capsule 72 mcg PO DAILY 06/15/22 10/19/22 History (Linzess) nicotine 7 mg/24 hr daily 1 patch transdermal DAILY PRN 06/15/22 10/19/22 History transdermal patch Nicotine Cravings vitamin B complex (B 1 tablet PO DAILY 06/15/22 10/19/22 History Complex-Vitamin B12 tablet) oxycodone-acetaminophen 5 mg-325 1 - 2 tablet PO Q4H PRN pain #40 06/23/22 10/19/22 Rx mg tablet tabs Laboratory Tests 10/27/22 08:00 Hgb 15.1 g/dL H g/dL (12.0-15.0) Hct 47.0 % % (37.0-47.0) Patient hx anesthesia problems: none Family hx anesthesia problems: none Results Review: All pre-operative results and documents have been reviewed as part of the pre-operative evaluation. [facility] Past Medical History Medical History (Updated 10/27/22 @ 08:39 by Adam Gallegos DO) Chronic, continuous use of opioids GERD (gastroesophageal reflux disease) IBS (irritable bowel syndrome) Migraine Neurogenic bowel Surgical History Surgical History (Updated 10/27/22 @ 08:39 by Adam Gallegos DO) History of cervical spinal surgery S/P fusion of sacroiliac joint Family History Family History Other Asthma Heart disease Hypertension Social History Social History Smoking packs per day: 1 Smoking cigarettes per day: 20.0 Years smoked: 15 Smoking pack-years: 15.00 Smoking status: Current some day smoker Tobacco type: cigarettes Smokeless tobacco user: other Second hand tobacco smoke exposure: Yes Additional smoking assessment comments: ATTEMPTING TO QUIT - USING NICOTINE PATCH Alcohol intake: never Substance use: never Substance use type: does not use Lack of Transportation: No Lack of Food: Never True Current Housing: I Have Housing Concerned About Future Housing: No Difficulty Paying Gas/Electric Bills: No Difficulty Paying for Meds: No Currently Unemployed: No Education: Don't Know Difficulty w/ Childcare or Family Care: No Living arrangements: with family Occupation/Education: occupation 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 Informed Consent: The patient's anesthetic plan and its attendant risks and benefits were discussed with the patient/family/POA. Questions were solicited and answers provided to the satisfaction of the patient/family/POA.
[2022-10-27] MEDS: LACTATED RINGERS 1,000 ML 30 ML IV CONT ×2 (09:15→11:53)
[2022-10-27] MEDS: ceFAZolin 2 GM/D5W 50 ML 2 GM/50 ML BAG IVPB (10:13)
[2022-10-27] MEDS: LIDO 1%/EPINEPHRINE 1:100,000 50 ML VIAL INFILTRATE (10:50)
[2022-10-27] MEDS: fentaNYL CITRATE INJ (*CRX) 100 MCG/2 ML VIAL 25 MCG IV PUSH ×8 (12:00→12:31)
[2022-10-27] MEDS: HYDROmorphone HCL INJ (*CRX) 1 MG/ML SYR 0.25 MG IV PUSH ×4 (12:50→13:25)
[2022-10-27] MEDS: oxyCODONE/ACETAMINOPHEN (*CRX) 10-325 MG TABLET 1 TAB PO ×2 (14:24→20:50)
[2022-10-27] MEDS: KCL 20 MEQ/D5/0.45% SOD CHL 1,000 ML 100 ML IV CONT (14:24)
--- NOTE | 2022-10-27 14:36 | ADMGEN ---
This patient, Johanna Calderon, was admitted to 2 Medical Room 256-. Patient/family oriented to hospital policies and general routines including ID bracelet, bed and alarms, visiting hours, pain management, procedures, bathroom and other care routines, personal items, smoking policy, room service/diet, and visiting hours. Information on how to activate the Rapid Response Team has been discussed. Patient/Family are encouraged to report perceived risks to care and to ask questions if they do not understand what they are told or what they should do.
[2022-10-27] MEDS: HYDROmorphone HCL INJ (*CRX) 1 MG/ML SYR 0.5 MG IV PUSH ×2 (17:55→22:31)
[2022-10-27] MEDS: CYCLOBENZAPRINE HCL 10 MG TABLET PO (20:50)
[2022-10-27] MEDS: DOCUSATE SODIUM 100 MG CAPSULE PO (20:52)
[2022-10-28 00:44] VITALS: BP 124/71; PULSE 80; RESP 20; TEMP 36.3; O2SAT 100
[2022-10-28] MEDS: oxyCODONE/ACETAMINOPHEN (*CRX) 10-325 MG TABLET 1 TAB PO ×4 (01:02→14:49)
[2022-10-28] MEDS: HYDROmorphone HCL INJ (*CRX) 1 MG/ML SYR 0.5 MG IV PUSH (02:16)
[2022-10-28 03:49] VITALS: BP 118/73; PULSE 64; RESP 18; TEMP 36.4; O2SAT 99
[2022-10-28 08:58] VITALS: BP 130/74; PULSE 74; RESP 16; TEMP 36.6; O2SAT 100
[2022-10-28] MEDS: ASCORBIC ACID 500 MG TABLET PO (09:23)
[2022-10-28] MEDS: LORATADINE 10 MG TABLET PO (09:23)
--- NOTE | 2022-10-28 09:32 | PC.NURSE ---
Dropped colace pill on ground; Pulled an extra from the [facility] [id number]
[2022-10-28] MEDS: DOCUSATE SODIUM 100 MG CAPSULE PO (10:26)
--- NOTE | 2022-10-28 10:51 | PC.NURSE ---
0900 vitamin B complex pill missing, called pharmacist x2 @0930 requesting medication to be sent. Currently awaiting arrival.
--- NOTE | 2022-10-28 11:00 | PC.NURSE ---
On 10/28/22, the student, [Amauyr Reeves], provided care and completed [facility] documentation on this patient. I have reviewed the student's documentation and agree with the findings.
[2022-10-28] MEDS: VITAMIN B COMPLEX CAPSULE 1 CAP PO (11:44)
[2022-10-28 12:37] VITALS: BP 139/75; PULSE 78; RESP 14; TEMP 36.9; O2SAT 100
--- NOTE | 2022-10-28 13:46 | WPDANESPN ---
Anes - Prog Note Post-Op Date/Time: 10/28/22 13:46 Cardiovascular status: normal Respiratory status: normal Airway patency: baseline Mental status: baseline Post-Op hydration status: normal Vital Signs: Last Vital Signs Temp 98.4 F 10/28/22 12:37 Pulse 78 10/28/22 12:37 Resp 14 10/28/22 12:37 BP 139/75 10/28/22 12:37 Pulse Ox 100 10/28/22 12:37 O2 Del Method Room Air 10/28/22 12:33 O2 Flow Rate 6 10/27/22 12:25 Pain Score (VAS): 0 I/O: Intake & Output 10/27/22 10/28/22 10/28/22 23:59 07:59 15:59 Intake Total 0 690 Balance 0 690 Laboratory Tests 10/27/22 08:00 Post-procedural complaints: none Patient Feedback: Patient satisfied with anesthetic care.
--- NOTE | 2022-10-28 14:04 | PC.NURSE ---
On 10/28/22, the student, [Tray Vivas], provided care and completed [facility] documentation on this patient. I have reviewed the student's documentation and agree with the findings.
--- NOTE | 2022-11-10 07:59 | W.PM.PROC2 ---
Procedure Note - Detailed Date of Procedure 11/10/22 Pre-op Diagnosis left sacroiliitis Post-op Diagnosis Same Procedure Performed Left sacroiliac joint fusion Surgeon Adama Fleming MD Anesthesia General Description of Procedure The patient was brought to the operating room in the supine position, was sedated, intubated and placed under general anesthesia in routine fashion. She was then turned into the prone position on gel rolls. The area of operation on the left buttock was examined, marked for incision, prepped and draped in routine sterile fashion. Incision was marked using fluoroscopy outline the sacrum and then placing a 2 in incision within that margin. This area was injected with 0.5% lidocaine with [id number] epinephrine. Intravenous antibiotics given prior to incision. Incision was made with a 10 blade scalpel. A K-wire was placed through the incision down to the sacrum and pelvis. A lateral x-ray confirmed its position in the sacroiliac joint. Using inlet and outlet views the K-wire was advanced across the sacroiliac joint and confirmed to be short of the foraminal line and within the anterior margin of the sacrum. A drill was placed along the K-wire and advanced short of the foraminal line. A 50 mm x 11.5 mm device was chosen. A tap was advanced across the same hole. The device was then placed on the appropriate courier delivery driver to be short of the foraminal line and within the anterior margin of the sacrum as confirmed by inlet and outlet views. A funnel was used to place I factor combined with local autograft obtained from the drilling across the device internally. The guide was used to direct a 2nd K-wire further down the sacrum and advanced in the same manner across the sacroiliac joint short of the foraminal line and within the anterior margin of the sacrum as confirmed by inlet and outlet views. In the same manner a drill, tap and device were placed across the SI joint. It was likewise filled with eye factor and local autograft bone. This was done a 3rd time. All devices were 11.5 mm in diameter. The 1st 2 were 50 mm long the last was 45 mm long. Confirming radiographs were obtained to confirm good position of the devices across the SI joint. The wound was copiously irrigated with bacitracin irrigation and then closed in layered fashion with 3-0 Vicryl interrupted sutures in the dermis and a running 4-0 Monocryl subcuticular stitch in the skin. It was then dressed with Dermabond. The patient was allowed to wake up in the operating room was taken to the recovery room in stable condition. There were no immediate complications of this operation. All counts were reported correct at the end the case. Blood loss was 10 cc. The patient was neurologically at her baseline postoperatively. Estimated Blood Loss 10 IV Fluids 1,000 Urine Output 250 Complications None Condition Stable Disposition PACU [facility] Billing Surgery - Charge Forward: Surgery Billing
== END 2022-10-28 15:25 | disposition home or self-care (01) ==
LOC: ANHSURGERY 06:45 → ANH2MED 14:40
PROVIDERS: Visit Provider Neurological Surgery
PROC: (CPT 27280; principal; 2022-10-27 09:30)
DX: M46.1 Sacroiliitis, not elsewhere classified (principal); K58.9 Irritable bowel syndrome, unspecified; Z79.891 Long term (current) use of opiate analgesic; F17.210 Nicotine dependence, cigarettes, uncomplicated; E66.9 Obesity, unspecified; Z68.35 Body mass index [BMI] 35.0-35.9, adult
CPT/HCPCS: 27280; 36415; 85014; 85018; 86850; 86900; 86901; 97161; 97165; 97530; 97535; 99199; A9270; C1713; J0330; J0690; J1100; J1170; J2250; J2370; J2405; J2704; J3010; J3370; J3480; J7120